=== PATIENT | female | born 1970 | race Caucasian/White ===

== ENCOUNTER 2022-01-28 17:16 | Emergency (ER) | payer SELFPAY ==
[2022-01-28 17:21] VITALS: BP 127/77; PULSE 130; RESP 21; TEMP 36.4; O2SAT 97; BMI 19.7
--- NOTE | 2022-01-28 17:53 | ED_ITS ---
HPI - Neck Pain/Injury General: Chief Complaint: Neck Pain/Injury Stated Complaint: Back and arm pain Time Seen by Provider: 01/28/22 17:29 History of Present Illness: Patient is in today for complaints of neck pain. She reports that she had an injury about 3 years ago. And since that time she has occasional flareups of this neck pain and muscle spasm. She reports that in the past she has been given steroids and that is tremendously helpful. She states that approximately 2 weeks ago she started having pain in her left posterior shoulder and the side of her neck. She reports that this started after moving from [place] to [place] and lifting heavy furniture. She reports that she can barely turn her neck at all. She has been taken BC powder for this with little to no relief. She denies any major medical history. She denies any fever, chills, nausea, vomiting. She denies any chest pain or shortness of breath. She denies any recent injury to the neck. States that she had been moving furniture but did not recall injuring herself. Review of Systems Const: Denies: fever(s), chills or body aches Card: Denies: chest pain or palpitations Resp: Denies: dyspnea Musc: Reports: neck pain (Left-sided neck pain and posterior shoulder pain) and limited range of motion Physical Exam Const: COMMON NORMALS: no acute distress, patient oriented x3 and alert Neck/C-Spine: OTHER: Patient has significant tenderness to palpation and left-sided cervical paraspinal musculature. There is obvious spasming appreciated. Into the trape zius on the left side. Patient is keeping her head turned slightly to the right. She is definitely not turning her head in full range of motion no obvious bony deformity appreciated on palpation of cervical spine. No obvious soft tissue deformity appreciated. Resp: COMMON NORMALS: normal respiratory effort, No use of accessory muscles and clear to auscultation bilaterally AUSCULTATION: clear to auscultation bilaterally Cardio: COMMON NORMALS: regular rate, regular rhythm, S1 normal heart sound present, S2 normal heart sound present and No murmurs present (Cardio) RATE: regular rate RHYTHM: regular rhythm HEART SOUNDS: S1 normal heart sound present and S2 normal heart sound present Neuro: COMMON NORMALS: patient oriented x3 SENSORIUM/ORIENTATION: Yes alert Course Vital Signs: Vital signs: Vital Signs Temperature 97.6 F 01/28/22 17:21 Pulse Rate 89 01/28/22 17:59 Respiratory Rate 16 01/28/22 17:59 Blood Pressure 127/77 01/28/22 17:21 Pulse Oximetry 96 01/28/22 17:59 Oxygen Delivery Me thod 01/28/22 17:21 MDM - Neck Pain/Injury Medical Decision Making 51-year-old female in for what she calls a flareup of a chronic injury. She reports that neck injury approximately 3 years ago. She reports that she has occasional flareups of this. She reports that for 2 weeks she has been unable to turn her head/neck fully. She denies any recent injury but states that she may have overdone it moving from [place] to [place]. She reports that in the past steroids have helped tremendously. Toradol, Depo-Medrol administered in here today. Send patient home with muscle relaxant. Discussed conservative measures at home to help ease spasming and pain. Advised patient possible benefits and side effects of medications provided today. Do not drive or take any other medications that make you sleepy when taking a muscle relaxant. Follow-up with primary care provider as needed. Return to the ER for any new or worsening symptoms Discharge Plan Discharge Patient Disposition: Home Clinical Impression: Strain of neck muscle, Muscle spasm Condition: Stable Prescriptions: New baclofen 10 mg tablet 10 mg PO TID PRN (Reason: muscle spasm) Qty: 10 0RF Discharge Orders: Discharge ED (Routine); Ordered 01/28/22 Ordered By: Sera Barclay Discharge Diet: Usual diet Discharge Activity: Increase activity as tolerated Patient Instructions: Opioid Safety, Pain Management Activity Restrictions/Additional Instructions: Take baclofen as prescribed as needed for muscle spasming. Do not drive after taking this medication. Do not take any other medications that make you sleepy along with this medication. Use warm moist compresses and gentle stretching to the area. No more ibuprofen or BC powder today. You may use Tylenol. You may resume ibuprofen BC powder tomorrow as needed. Follow-up with primary care provider next week. Return to the ER as needed for new or worsening symptoms. 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
[2022-01-28 17:59] VITALS: PULSE 89; RESP 16; O2SAT 96
[2022-01-28] MEDS: methylPREDNISolone (DEPO) 40 mg/mL INJ 1 mL IM (18:25)
[2022-01-28] MEDS: ketorolac 60 mg/2 mL INJ IM (18:25)
== END 2022-01-28 18:43 | disposition home or self-care (01) ==
PROVIDERS: Emergency Provider Nurse Practitioner Family
DX: S16.1XXA Strain of muscle, fascia and tendon at neck level, initial encounter (principal); M62.838 Other muscle spasm; X50.0XXA Overexertion from strenuous movement or load, initial encounter
CPT/HCPCS: 96372; 99284; J1030; J1885

== ENCOUNTER 2022-08-20 09:38 | Outpatient (CLI) | payer MEDICAID, SELFPAY ==
--- NOTE | 2022-08-20 09:49 | CT_ITS ---
WS: [id number] CT CHEST TECHNIQUE: Noncontrast CT of the chest with coronal and sagittal reformatted images. CLINICAL INFORMATION: ABNORMAL CHEST CT COMPARISON: None. DLP: 175.[address] scans at [facility] use at least one of these dose optimization techniques: automated e xposure control; mA and/or kV adjustment per patient size (includes targeted exams where dose is matc hed to clinical indication); or iterative reconstruction. FINDINGS: Peripherally calcified RIGHT thyroid nodule measuring 1.6 x 1.2 CM. Smaller LEFT thyroid nodule measu ring 8 mm. Slightly prominent ascending thoracic aorta measuring 3.4 CM. Normal caliber descending th oracic aorta. No mediastinal or hilar lymphadenopathy. No axillary lymphadenopathy. Incidental hepatic cysts. Some are too small to characterize. Adrenal glands are normal. Normal GE ju nction. Patchy tree-in-bud infiltrates within the RIGHT middle lobe and anterior LEFT upper lobe. Fin dings likely infectious or inflammatory. This can be seen with respiratory bronchiolitis and mycobact erium avium complex No focal consolidation or pleural fluid. No other suspicious pulmonary parenchymal abnormalities. CT/CT chest wo con [id number] IMPRESSION: 1. Patchy tree-in-bud opacities in the RIGHT middle lobe and anterior inferior LEFT upper lobe and lingula. This is likely infectious or inflammatory and can be seen with respiratory bronchiolitis and MAC 2. No mediastinal or hilar lymphadenopathy. 3. Thyroid nodule described above. This can be followed up with ultrasound on elective basis. 4. A few low-attenuation lesions in the liver likely hepatic cyst. Some too sm all characterize.
== END 2022-08-20 09:39 | disposition home or self-care (01) ==
LOC: RAD 09:41
PROVIDERS: PCP Nurse Practitioner Family; Visit Provider Nurse Practitioner Family
DX: R93.89 Abnormal findings on diagnostic imaging of other specified body structures (principal); E04.1 Nontoxic single thyroid nodule; K76.9 Liver disease, unspecified
CPT/HCPCS: 71250

== ENCOUNTER → 2022-10-23 16:55 | Outpatient (BNVA) | payer MEDICAID, SELFPAY | PROVIDERS: PCP Nurse Practitioner Family; Visit Provider Internal Medicine Pulmonary Disease | DX: R06.02 Shortness of breath (principal); J84.9 Interstitial pulmonary disease, unspecified | CPT/HCPCS: 36415; 82784; 82785; 86003; 86160; 86162; 86235; 86255; 86376; 86431; 86480; 99204 ==

== ENCOUNTER 2022-11-21 07:17 | Outpatient (CLI) | payer MEDICAID, SELFPAY ==
[2022-11-21 07:43] VITALS: PULSE 71; RESP 18; O2SAT 99
[2022-11-21] MEDS: albuterol 2.5 mg/3 mL Neb INHALATION (07:43)
[2022-11-21 07:48] VITALS: PULSE 67
== END 2022-11-21 07:18 | disposition home or self-care (01) ==
LOC: RT 07:20
PROVIDERS: PCP Nurse Practitioner Family; Visit Provider Internal Medicine Pulmonary Disease
DX: R06.02 Shortness of breath (principal); Z87.891 Personal history of nicotine dependence; R94.2 Abnormal results of pulmonary function studies
CPT/HCPCS: 94060; 94618; 94726; 94729; J7613

== ENCOUNTER 2023-04-30 17:08 | Outpatient (CLI) | payer BC, OTHER, SELFPAY | END 2023-04-30 17:09 | disposition home or self-care (01) | LOC: LAB 17:09 | PROVIDERS: PCP Nurse Practitioner Family; Visit Provider Internal Medicine Pulmonary Disease | DX: J84.9 Interstitial pulmonary disease, unspecified (principal) | CPT/HCPCS: 87070; 87077; 87186; 87205 ==

== ENCOUNTER 2023-05-31 09:47 | Outpatient (CLI) | payer BC, SELFPAY ==
--- NOTE | 2023-05-31 10:00 | CT_ITS ---
WS: [id number] CT chest wo con [id number] HISTORY: to check for resolution of previous infiltrates. TECHNIQUE: Axial imaging performed through the thorax. Coronal and sagittal reformats are submitted. All CT scans at [facility] use at least one of these dose optimization techniques: automated exposure control; mA and/or kV adjustment per patient size (includes targeted exams where dose is mat ched to clinical indication); or iterative reconstruction. CONTRAST: None DLP: 228.42 mGy.cm COMPARISON: 08/20/2022 Lungs and central airway: Moderate pulmonary hyperinflation. Previously described tree-in-bud airspac e disease in the RIGHT middle lobe has resolved. There is mild persistent bronchial thickening at the lingula. No mass or nodule. Pleura: Normal. No pleural effusion. Heart and pericardium: Normal size heart with no pericardial effusion. Mediastinum and nicola: No mediastinum or hilar adenopathy. Vessels: Mildly ectatic thoracic aorta. Pulmonary arteries normal size. Chest wall and lower neck: Bilateral thyroid nodules. There are 2 adjacent nodules in the RIGHT thyro id with peripheral calcification. The largest measures 12 mm. Upper abdomen: Reidentified are areas of decreased attenuation along the falciform ligament and LEFT lobe of the liver. Some of these changes may be related to focal fatty sparing and/or cyst. Osseous structures: No destructive process. IMPRESSION: 1. Interval resolution of the tree-in-bud airspace disease in the RIGHT middle lobe since 08/20/2022. 2. Persistent opacification of the lingula is probably related to chronic atelectasis. 3. No new mass or nodule. 4. Reidentified are bilateral thyroid nodules. These can be further evaluated by ultrasound.
== END 2023-05-31 09:48 | disposition home or self-care (01) ==
LOC: RAD 09:47
PROVIDERS: PCP Nurse Practitioner Family; Visit Provider Internal Medicine Pulmonary Disease
DX: R91.8 Other nonspecific abnormal finding of lung field (principal); E04.1 Nontoxic single thyroid nodule
CPT/HCPCS: 71250